=== PATIENT | female | born 1955 | race Caucasian/White ===

== ENCOUNTER 2017-01-27 20:30 | Outpatient (CLI) | payer BC | END 2017-01-27 20:31 | disposition home or self-care (01) | LOC: SLEEPLAB 20:30 | PROVIDERS: ATTEND Internal Medicine Pulmonary Disease | DX: G47.33 Obstructive sleep apnea (adult) (pediatric) (principal); E11.9 Type 2 diabetes mellitus without complications; R09.02 Hypoxemia | CPT/HCPCS: 95810 ==

== ENCOUNTER 2017-03-24 20:30 | Outpatient (CLI) | payer BC | END 2017-03-24 20:31 | disposition home or self-care (01) | LOC: SLEEPLAB 20:30 | PROVIDERS: ATTEND Internal Medicine Pulmonary Disease | DX: G47.33 Obstructive sleep apnea (adult) (pediatric) (principal); E66.9 Obesity, unspecified | CPT/HCPCS: 95811 ==

== ENCOUNTER 2017-12-18 14:29 | Outpatient (CLI) | payer BC | END 2017-12-18 14:30 | disposition home or self-care (01) | LOC: BICMAMMO 14:29 | PROVIDERS: ATTEND Family Medicine | DX: Z12.31 Encounter for screening mammogram for malignant neoplasm of breast (principal) | CPT/HCPCS: 77063; 77067 ==

== ENCOUNTER 2019-03-23 14:37 | Outpatient (CLI) | payer BC ==
--- NOTE | 2019-03-23 15:10 | MMO ---
Bilateral MAMMO Bilat Screen [facility]. CLINICAL HISTORY: Patient is 63 years old and is seen for screening. The patient has no family history of breast cancer. The patient has no personal history of cancer. VIEWS: The views performed were: bilateral craniocaudal with tomosynthesis and bilateral mediolateral oblique with tomosynthesis. FILMS COMPARED: The present examination has been compared to prior imaging studies performed at on 12/11/2016 and 12/18/2017. This study has been interpreted with the assistance of computer-aided detection. MAMMOGRAM FINDINGS: There are scattered fibroglandular densities. There are stable benign appearing calcifications seen in both breasts. There are no suspicious masses, suspicious calcifications, or new areas of architectural distortion. IMPRESSION: THERE IS NO MAMMOGRAPHIC EVIDENCE OF MALIGNANCY. A ROUTINE FOLLOW-UP MAMMOGRAM IN 1 YEAR IS RECOMMENDED. THE RESULTS OF THIS EXAM WERE SENT TO THE PATIENT. ACR BI-RADS Category 2 - Benign finding MAMMOGRAPHY NOTE: 1. A negative mammogram report should not delay a biopsy if a dominant of clinically suspicious mass is present. 2. Approximately 10% to 15% of breast cancers are not detected by mammography. 3. Adenosis and dense breasts may obscure an underlying neoplasm. Reported by: JESSICA EISENBERG MD Electonically Signed: [id number]
== END 2019-03-23 14:38 | disposition home or self-care (01) ==
LOC: BICMAMMO 14:37
PROVIDERS: ATTEND Family Medicine
DX: Z12.31 Encounter for screening mammogram for malignant neoplasm of breast (principal)
CPT/HCPCS: 77063; 77067

== ENCOUNTER 2020-04-24 12:46 | Outpatient (CLI) | payer MEDICARE, BC ==
--- NOTE | 2020-04-24 13:26 | MMO ---
Bilateral MAMMO Bilat Screen [facility]. CLINICAL HISTORY: Patient is 64 years old and is seen for screening. The patient has no family history of breast cancer. The patient has no personal history of cancer. VIEWS: The views performed were: bilateral craniocaudal with tomosynthesis and bilateral mediolateral oblique with tomosynthesis. FILMS COMPARED: The present examination has been compared to prior imaging studies performed at 12/11/2016, 12/18/2017 and 03/23/2019. This study has been interpreted with the assistance of computer-aided detection. MAMMOGRAM FINDINGS: There are scattered fibroglandular densities. There are stable benign appearing calcifications seen in both breasts. There are no suspicious masses, suspicious calcifications, or new areas of architectural distortion. IMPRESSION: THERE IS NO MAMMOGRAPHIC EVIDENCE OF MALIGNANCY. A ROUTINE FOLLOW-UP MAMMOGRAM IN 1 YEAR IS RECOMMENDED. THE RESULTS OF THIS EXAM WERE SENT TO THE PATIENT. ACR BI-RADS Category 2 - Benign finding MAMMOGRAPHY NOTE: 1. A negative mammogram report should not delay a biopsy if a dominant of clinically suspicious mass is present. 2. Approximately 10% to 15% of breast cancers are not detected by mammography. 3. Adenosis and dense breasts may obscure an underlying neoplasm. Reported by: JESSICA EISENBERG MD Electonically Signed: [id number]
== END 2020-04-24 12:47 | disposition home or self-care (01) ==
LOC: BICMAMMO 12:46
PROVIDERS: ATTEND Family Medicine
DX: Z12.31 Encounter for screening mammogram for malignant neoplasm of breast (principal)
CPT/HCPCS: 77063; 77067

== ENCOUNTER 2021-08-19 07:58 | Outpatient (CLI) | payer MEDICARE, BC ==
[2021-08-19 08:36] LABS: Estimated GFR-MDRD - POC Greater than 90
[2021-08-19] MEDS ORDERED: Iopamidol-370 76% 500 ML 1 ML ONE (08:48)
== END 2021-08-19 07:59 | disposition home or self-care (01) ==
LOC: BICCT 07:58
PROVIDERS: ATTEND Urology
DX: R31.0 Gross hematuria (principal); R16.1 Splenomegaly, not elsewhere classified; K57.30 Diverticulosis of large intestine without perforation or abscess without bleeding
CPT/HCPCS: 74178; 82565; Q9967

== ENCOUNTER 2022-03-16 14:38 | Inpatient (IN) | payer MEDICARE, BC ==
[2022-03-16] MEDS ORDERED: Diazepam 5 MG TAB ONE (15:37)
[2022-03-16 15:45] LABS: #Eosinphils 0.1 thou/uL (0.0-0.7); #Lymphocytes 0.7 thou/uL (1.20-3.40); #Monocytes 0.5 thou/uL (0.11-0.59); #Neutrophils 8.1 thou/uL (1.40-6.50); %Basophils 0.2 % (0.0-1.0); %Lymphocytes 7.1 % (21.0-51.0); %Monocytes 5.7 % (0.0-10.0); Mean Corpuscular HGB CONC 32.9 g/dL (32.0-36.0); Mean Corpuscular Hemoglobin 27.1 pg (27.0-31.0); Mean Corpuscular Volume 82.5 fl (78.0-98.0); Mean Platelet Volume 7.4 fL (7.4-10.4); Platelet Count 221 10x3/uL (130-400); RBC Distribution Width 13.1 % (11.5-14.5); Red Blood Cell (RBC) Count 5.17 mill/uL (4.20-5.40); White Blood Cell (WBC) Count 9.4 10x3/uL (4.8-10.8)
[2022-03-16 15:56] LABS: PTT 35.4 sec (22.9-36.1); Prothrombin Time 13.8 sec (12.0-14.7)
[2022-03-16 15:58] LABS: Acetaminophen Less than 10.0 mcg/mL (10.0-30.0); Alcohol Less than 10 mg/dL (Less than 10); Salicylate Less than 8.0 mg/dL (15.0-30.0)
[2022-03-16 16:00] LABS: ALT (SGPT) 36 U/L (8-55); AST (SGOT) 43 U/L (5-34); Albumin 4.4 g/dL (3.4-4.8); Alkaline Phosphatase 72 U/L (40-110); Anion Gap 15 mmol/L (10-20); BUN (Urea Nitrogen) 13 mg/dL (9.8-20.1); Bilirubin, Total 0.7 mg/dL (0.2-1.2); Calc. Creatinine Clearance 0 mL/min (70-130); Calcium 9.3 mg/dL (7.8-10.44); Carbon Dioxide 24 mmol/L (23-31); Chloride 103 mmol/L (98-107); Estimated GFR 85; Globulin 2.8 g/dL (2.4-3.5); Glucose 239 mg/dL (80-115); Magnesium 1.7 mg/dL (1.6-2.6); Protein, Total 7.2 g/dL (5.8-8.1); Sodium 138 mmol/L (136-145)
[2022-03-16] MEDS ORDERED: Senokot S 8.6-50 MG TAB PO PRN (18:43)
[2022-03-16] MEDS ORDERED: Acetaminophen 325 MG TAB PO PRN (18:43)
[2022-03-16] MEDS ORDERED: Dextrose 50% Abboject 50 ML SYRINGE SLOW IVP PRN (18:45)
[2022-03-16] MEDS ORDERED: Dextrose 5% in Water 1,000 ML IV PRN (18:45)
[2022-03-16] MEDS ORDERED: Ondansetron ODT 4 MG TAB SL PRN (19:00)
[2022-03-16] MEDS ORDERED: Ondansetron PF 4 MG/2 ML Vial IVP PRN (19:00)
[2022-03-16] MEDS: Famotidine 20 MG TAB PO SCH (21:58)
[2022-03-16] MEDS: Insulin Glargine 30 UNITS/0.3 ML VIAL SC SCH (21:58)
[2022-03-16] MEDS: Atorvastatin Calcium 40 MG TAB PO SCH (21:58)
[2022-03-17 03:50] VITALS: BMI 33.0
[2022-03-17 06:03] LABS: #Eosinphils 0.2 thou/uL (0.0-0.7); #Lymphocytes 1.1 thou/uL (1.20-3.40); #Monocytes 0.6 thou/uL (0.11-0.59); #Neutrophils 6.4 thou/uL (1.40-6.50); %Basophils 0.3 % (0.0-1.0); %Eosinophils 2.6 % (0.0-10.0); %Lymphocytes 12.9 % (21.0-51.0); %Monocytes 7.7 % (0.0-10.0); %Neutrophils 76.6 % (42.0-75.0); Hemoglobin 13.5 g/dL (12.0-16.0); Mean Corpuscular HGB CONC 32.8 g/dL (32.0-36.0); Mean Corpuscular Hemoglobin 27.3 pg (27.0-31.0); Mean Corpuscular Volume 83.2 fl (78.0-98.0); Mean Platelet Volume 7.6 fL (7.4-10.4); Platelet Count 200 10x3/uL (130-400); RBC Distribution Width 13.1 % (11.5-14.5); Red Blood Cell (RBC) Count 4.96 mill/uL (4.20-5.40); White Blood Cell (WBC) Count 8.3 10x3/uL (4.8-10.8)
[2022-03-17 06:20] LABS: Anion Gap 13 mmol/L (10-20); BUN (Urea Nitrogen) 10 mg/dL (9.8-20.1); Calc. Creatinine Clearance 89 mL/min (70-130); Calcium 9.3 mg/dL (7.8-10.44); Carbon Dioxide 29 mmol/L (23-31); Cardiac Risk 4.5 (Less than 4.5); Chloride 101 mmol/L (98-107); Cholesterol 143 mg/dl (< 200 Desired); Estimated GFR 74; Glucose 178 mg/dL (80-115); HDL Cholesterol 32 mg/dL (>60 Neg Risk); LDL Cholesterol, Calculated 72 mg/dL; Potassium 4.8 mmol/L (3.5-5.1); Sodium 138 mmol/L (136-145); Triglycerides 194 mg/dL (Less than 150)
[2022-03-17] MEDS: Aspirin 81 mg Enteric Coated Tablet PO SCH (08:51)
[2022-03-17] MEDS: Famotidine 20 MG TAB PO SCH ×2 (08:51→21:55)
[2022-03-17] MEDS: Lisinopril 10 MG TAB PO SCH (08:52)
[2022-03-17] MEDS: Insulin Regular 300 UNITS/3 ML VIAL SC PRN (12:22)
[2022-03-17] MEDS: Meclizine HCl 12.5 MG TAB PO PRN (15:40)
[2022-03-17] MEDS: Ondansetron PF 4 MG/2 ML Vial IVP PRN ×2 (15:41→22:08)
[2022-03-17] MEDS: Atorvastatin Calcium 40 MG TAB PO SCH (21:55)
[2022-03-17] MEDS: Insulin Glargine 30 UNITS/0.3 ML VIAL SC SCH (21:55)
[2022-03-17] MEDS: Gabapentin 300 MG CAP PO SCH (21:56)
[2022-03-17] MEDS ORDERED: Ondansetron PF 4 MG/2 ML Vial IVP SCH (23:00)
[2022-03-17] MEDS ORDERED: Diazepam 10 MG/2 ML SYRINGE IVP SCH (23:15)
[2022-03-18 06:13] LABS: #Eosinphils 0.2 thou/uL (0.0-0.7); #Lymphocytes 0.9 thou/uL (1.20-3.40); #Monocytes 0.7 thou/uL (0.11-0.59); #Neutrophils 7.1 thou/uL (1.40-6.50); %Basophils 0.3 % (0.0-1.0); %Eosinophils 1.8 % (0.0-10.0); %Monocytes 7.5 % (0.0-10.0); %Neutrophils 80.5 % (42.0-75.0); Hemoglobin 14.3 g/dL (12.0-16.0); Mean Corpuscular HGB CONC 31.4 g/dL (32.0-36.0); Mean Corpuscular Hemoglobin 25.8 pg (27.0-31.0); Mean Corpuscular Volume 82.2 fl (78.0-98.0); Mean Platelet Volume 7.7 fL (7.4-10.4); Platelet Count 244 10x3/uL (130-400); RBC Distribution Width 13.4 % (11.5-14.5); Red Blood Cell (RBC) Count 5.52 mill/uL (4.20-5.40); White Blood Cell (WBC) Count 8.8 10x3/uL (4.8-10.8)
[2022-03-18] MEDS: Levothyroxine Sodium 50 MCG TAB PO SCH (06:26)
[2022-03-18 06:32] LABS: Hemoglobin A1c 9.1 % (4.0-6.0)
[2022-03-18 06:36] LABS: Anion Gap 15 mmol/L (10-20); BUN (Urea Nitrogen) 10 mg/dL (9.8-20.1); Calc. Creatinine Clearance 81 mL/min (70-130); Calcium 9.3 mg/dL (7.8-10.44); Carbon Dioxide 29 mmol/L (23-31); Chloride 101 mmol/L (98-107); Estimated GFR 66; Glucose 192 mg/dL (80-115); Potassium 4.5 mmol/L (3.5-5.1); Sodium 140 mmol/L (136-145)
[2022-03-18] MEDS: Ondansetron PF 4 MG/2 ML Vial IVP PRN (08:13)
[2022-03-18] MEDS: Aspirin 81 mg Enteric Coated Tablet PO SCH (09:49)
[2022-03-18] MEDS: Sertraline 25 MG TAB PO SCH (09:49)
[2022-03-18] MEDS: Meclizine HCl 12.5 MG TAB PO PRN (09:50)
[2022-03-18] MEDS: Famotidine 20 MG TAB PO SCH ×2 (09:50→21:37)
[2022-03-18] MEDS: Lisinopril 10 MG TAB PO SCH (09:50)
[2022-03-18] MEDS: Gabapentin 300 MG CAP PO SCH ×2 (11:38→21:50)
[2022-03-18] MEDS: Insulin Regular 300 UNITS/3 ML VIAL SC PRN ×2 (11:40→21:51)
[2022-03-18] MEDS ORDERED: Diazepam 2 MG TAB PO PRN (11:56)
[2022-03-18 13:09] LABS: Bacteria/HPF None Seen HPF (None Seen); Bilirubin Negative (Negative); Blood, Urine Negative (Negative); CAUTI Indications for Culture Alt mental st,lethar; Clarity Clear (Clear); Glucose, Urine (Dipstick) Normal (Negative); Ketone, Urine Negative (Negative); Leukocyte Negative Leu/uL (Negative); Nitrite Negative (Negative); Protein, Urine (Dipstick) 30 mg/dL (Neg-Trace); RBC/HPF 0-3 HPF (0-3); Specific Gravity, Urine 1.014 (1.002-1.036); Squamous Epithelial 0-3 HPF (0-3); WBC/HPF 0-3 HPF (0-3); pH, Urine 6.5 (5.0-9.0)
[2022-03-18 13:36] LABS: Urine Culture Reflex No No
[2022-03-18] MEDS: Sodium Chloride 0.9% 1,000 ML IV SCH (13:50)
[2022-03-18] MEDS ORDERED: Meclizine HCl 12.5 MG TAB PO SCH (15:00)
[2022-03-18] MEDS: Meclizine HCl 25 MG TAB PO SCH ×2 (16:13→21:37)
[2022-03-18] MEDS: metFORMIN 500 MG TAB PO SCH (17:41)
[2022-03-18] MEDS: Atorvastatin Calcium 40 MG TAB PO SCH (21:37)
[2022-03-18] MEDS: Insulin Glargine 30 UNITS/0.3 ML VIAL SC SCH (21:38)
[2022-03-19] MEDS: Sodium Chloride 0.9% 1,000 ML IV SCH (02:59)
[2022-03-19 05:56] LABS: Anion Gap 15 mmol/L (10-20); BUN (Urea Nitrogen) 14 mg/dL (9.8-20.1); Calc. Creatinine Clearance 90 mL/min (70-130); Calcium 8.7 mg/dL (7.8-10.44); Carbon Dioxide 26 mmol/L (23-31); Chloride 104 mmol/L (98-107); Estimated GFR 76; Glucose 181 mg/dL (80-115); Potassium 4.6 mmol/L (3.5-5.1); Sodium 140 mmol/L (136-145)
[2022-03-19] MEDS: Insulin Regular 300 UNITS/3 ML VIAL SC PRN ×2 (06:17→12:37)
[2022-03-19] MEDS: Levothyroxine Sodium 50 MCG TAB PO SCH (06:18)
[2022-03-19] MEDS: Meclizine HCl 25 MG TAB PO SCH ×2 (06:18→14:06)
[2022-03-19] MEDS: Aspirin 81 mg Enteric Coated Tablet PO SCH (08:43)
[2022-03-19] MEDS: Gabapentin 300 MG CAP PO SCH (08:43)
[2022-03-19] MEDS: Sertraline 25 MG TAB PO SCH (08:43)
[2022-03-19] MEDS: metFORMIN 500 MG TAB PO SCH (08:44)
[2022-03-19] MEDS: Famotidine 20 MG TAB PO SCH (08:44)
[2022-03-19] MEDS: Lisinopril 10 MG TAB PO SCH (11:02)
[2022-03-19 17:39] VITALS: BP 152/65; TEMP 97.6
[2022-03-20] MEDS ORDERED: FLU VACC QS2022-23(65YR UP)/PF 240 MCG/0.7 ML SYRINGE IM ONE (09:00)
== END 2022-03-19 17:00 | disposition home or self-care (01) | DRG 149 ==
LOC: ERS 14:38 → NEURO 17:39 → OBSVTOIN 03-17 16:50
PROVIDERS: ADMIT Student in an Organized Health Care Education/Training Program; ATTEND Internal Medicine
DX: H81.10 Benign paroxysmal vertigo, unspecified ear (principal); Z23 Encounter for immunization; Z20.822 Contact with and (suspected) exposure to COVID-19; I10 Essential (primary) hypertension; E03.9 Hypothyroidism, unspecified; E11.65 Type 2 diabetes mellitus with hyperglycemia; E78.2 Mixed hyperlipidemia; I95.1 Orthostatic hypotension; Z79.84 Long term (current) use of oral hypoglycemic drugs; Z79.4 Long term (current) use of insulin; Z79.890 Hormone replacement therapy; Z79.899 Other long term (current) drug therapy
CPT/HCPCS: 36415; 36416; 70450; 70551; 80048; 80053; 80061; 80307; 81001; 83036; 83735; 84100; 84443; 84484; 85025; 85610; 85730; 93005; 93306; 93880; 95712; 95819; 95957; 96374; G0378; J1815; J2405; J3360; J7050; U0003; U0005

== ENCOUNTER 2023-02-20 09:50 | Outpatient (CLI) | payer MEDICARE, BC | END 2023-02-20 09:51 | disposition home or self-care (01) | LOC: BICMAMMO 09:50 | PROVIDERS: ATTEND Family Medicine | DX: Z12.31 Encounter for screening mammogram for malignant neoplasm of breast (principal); Z78.0 Asymptomatic menopausal state | CPT/HCPCS: 77063; 77067; 77080 ==

== ENCOUNTER 2023-05-01 11:32 | Outpatient (CLI) | payer MEDICARE | END 2023-05-01 11:33 | disposition home or self-care (01) | LOC: BICRAD 11:32 | PROVIDERS: ATTEND Chiropractor | DX: M54.50 Low back pain, unspecified (principal); M47.816 Spondylosis without myelopathy or radiculopathy, lumbar region | CPT/HCPCS: 72100 ==

== ENCOUNTER 2024-01-08 10:36 | Outpatient (CLI) | payer MEDICARE ==
[~2024-01-08 10:36] MED LIST: Magnevist 469MG/ML 20 ML VIAL ONE
== END 2024-01-08 10:37 | disposition home or self-care (01) ==
LOC: MRI 10:36
PROVIDERS: ATTEND Psychiatry & Neurology Neurology
DX: M48.061 Spinal stenosis, lumbar region without neurogenic claudication (principal); M47.816 Spondylosis without myelopathy or radiculopathy, lumbar region; M47.817 Spondylosis without myelopathy or radiculopathy, lumbosacral region
CPT/HCPCS: 72158